=== PATIENT | female | born 1940 | race African-American/Black ===

== ENCOUNTER 2022-02-10 06:27 | Day surgery (SDC) | payer OTHER ==
[~2022-02-10] VITALS: Ht 152.4 cm; Wt 47.7 kg
[2022-02-10] MEDS ORDERED: MIDAZOLAM HCL 5 MG/5 ML VIAL IVP ONE (10:51)
[2022-02-10] MEDS ORDERED: WATER FOR IRRIGATION,STERILE 1,000 ML IRRIG.SOLN IR ONE (10:51)
[2022-02-10] MEDS ORDERED: CEFAZOLIN 1 GM IVPB PREMIX 50 ML IV ONE (10:51)
[2022-02-10] MEDS ORDERED: SEVOFLURANE 15 MIN GAS INH ONE (10:51)
[2022-02-10] MEDS ORDERED: PROPOFOL 200MG/ 20ML VIAL (DIPRIVAN) IV ONE (10:51)
[2022-02-10] MEDS ORDERED: DEXAMETHASONE SOD PHOSPHATE 4 MG/ML VIAL IVP ONE (10:51)
[2022-02-10] MEDS ORDERED: LR 1,000 ML IV.SOLN IV ONE (10:51)
[2022-02-10] MEDS ORDERED: fentaNYL CITRATE 250 MCG/5 ML AMP IV ONE (10:51)
[2022-02-10] MEDS ORDERED: LIDOCAINE 1% 10 MG/ML, 20 ML MDV INJ ONE (10:51)
[2022-02-10] MEDS ORDERED: ONDANSETRON HCL 4 MG/2 ML VIAL IVP ONE (10:51)
[2022-02-10] MEDS ORDERED: ACETAMINOPHEN I.V. 1000 MG 100 ML IV ONE (11:27)
[2022-02-10] MEDS ORDERED: MEPERIDINE HCL/PF 25 MG/ML DISP.SYRIN IVP PRN (11:30)
[2022-02-10] MEDS ORDERED: HYDROmorphone 1 MG/ML INJ. CARTRIDGE IVP PRN ×3 (11:30→12:15)
[2022-02-10] MEDS ORDERED: hydrALAZINE HCL 20 MG/ML VIAL IVP PRN (11:30)
[2022-02-10] MEDS ORDERED: LABETALOL 100 MG/ 20ML VIAL IVP PRN (11:30)
[2022-02-10] MEDS ORDERED: LR 1,000 ML IV SCH (11:30)
[2022-02-10] MEDS ORDERED: METOCLOPRAMIDE HCL 10 MG/2 ML VIAL IVP PRN (11:30)
[2022-02-10] MEDS ORDERED: HYDROcodone/ACETAMIN 5-325 MG TAB (NORCO/ VICODIN) PO PRN ×2 (12:15)
[2022-02-10] MEDS ORDERED: D5/0.45 NS 1,000 ML IV SCH (12:15)
[2022-02-10 17:09] VITALS: BP_SYST 159
== END 2022-02-10 16:05 | disposition home or self-care (01) ==
LOC: SDS 06:27 → SMU 06:29 → SDS 16:05
PROVIDERS: ATTEND Colon & Rectal Surgery
DX: D05.12 Intraductal carcinoma in situ of left breast (principal); I10 Essential (primary) hypertension; K21.9 Gastro-esophageal reflux disease without esophagitis; Z86.73 Personal history of transient ischemic attack (TIA), and cerebral infarction without residual deficits; E78.5 Hyperlipidemia, unspecified; Z79.82 Long term (current) use of aspirin; Z20.822 Contact with and (suspected) exposure to COVID-19; Z79.899 Other long term (current) drug therapy
CPT/HCPCS: 19303; 36415; 88307; 87426; J0690; J1100; J2001; J2250; J2405; J2704; J3010; J7120; J0131